=== PATIENT | male | born 1950 | race Caucasian/White ===

== ENCOUNTER 2020-01-15 22:02 | Emergency (ER) | payer OTHER, MEDICARE ==
[~2020-01-15] VITALS: Ht 180.3 cm; Wt 93.0 kg
[2020-01-15] MEDS ORDERED: HYDROCODONE/APAP 10MG-325MG TAB PO ONE (22:15)
[2020-01-15] MEDS ORDERED: HYDROCODONE/APAP 10MG-325MG TAB ONE (22:15)
[2020-01-15] MEDS ORDERED: ULTRAM50 MG PO (23:06)
== END 2020-01-16 00:06 | disposition home or self-care (01) ==
LOC: ER 22:09
DX: S82.491A Other fracture of shaft of right fibula, initial encounter for closed fracture (principal); W11.XXXA Fall on and from ladder, initial encounter; Y92.008 Other place in unspecified non-institutional (private) residence as the place of occurrence of the external cause
CPT/HCPCS: 99283

== ENCOUNTER 2022-04-15 22:45 | Emergency (ER) | payer OTHER, MEDICARE ==
[~2022-04-15] VITALS: Ht 180.3 cm; Wt 83.9 kg
[~2022-04-15 22:45] MED LIST: ULTRAM50 MG PO
[2022-04-16] MEDS ORDERED: ACULAR5 ML OD (00:09)
[2022-04-16] MEDS ORDERED: ERYTHROMYCIN (OPTH) 3.5 GM OINT OP ONE (00:10)
[2022-04-16] MEDS ORDERED: TOBRAMYCIN SULFA5 ML OD (00:11)
[2022-04-16 00:24] VITALS: BP 149/73
== END 2022-04-16 00:24 | disposition home or self-care (01) ==
LOC: FSED 22:52
DX: H57.11 Ocular pain, right eye (principal); S05.01XA Injury of conjunctiva and corneal abrasion without foreign body, right eye, initial encounter; Y92.89 Other specified places as the place of occurrence of the external cause
CPT/HCPCS: 99283